=== PATIENT | female | born 1985 | race Caucasian/White ===

== ENCOUNTER 2017-10-27 11:20 | Emergency (ER) | payer OTHER ==
[2017-10-27 11:33] VITALS: BP 130/94
--- NOTE | 2017-10-27 12:01 | UC ---
Skin Complaint HPI - HPI Summary HPI Summary: 32yo otherwise healthy F with complaint of "something bit me." She states that on Sat evening (approx 1.5 days ago) she developed redness/swelling without pain to the dorsal surface of the R index finger. Hx of latex allergy but without any known exposure. No known bite. No fever, redness up the finger or other complaints. Right handed. - History of Current Complaint Chief Complaint: UCSkin Time Seen by Provider: 10/27/17 11:35 Stated Complaint: RED AREA ON FINGER Hx Obtained From: Patient Hx Last Menstrual Period: now Pain Intensity: 0 - Allergy/Home Medications Allergies/Adverse Reactions: Allergies Allergy/AdvReac Type Severity Reaction Status Date / Time latex Allergy Itching Verified 10/27/17 11:33 Review of Systems Constitutional: Negative Skin: Other - discoloration Respiratory: Negative Cardiovascular: Negative Neurovascular: Negative Musculoskeletal: Other: - no pain, warmth. +swelling of finger All Other Systems Reviewed And Are Negative: Yes PMH/Surg Hx/FS Hx/Imm Hx Previously Healthy: Yes Endocrine History: Other - denies diabetes Other Endocrine History: no DM - Surgical History Surgical History: None - Family History Known Family History: Positive: None Family History: R & n/C - Social History Alcohol Use: None Alcohol Amount: none in 3 years Substance Use Type: None Smoking Status (MU): Current Every Day Smoker Type: Cigarettes Amount Used/How Often: 1/2 ppd Length of Time of Smoking/Using Tobacco: 12+ years Have You Smoked in the Last Year: Yes Household Exposure Type: Cigarettes - Immunization History Most Recent Influenza Vaccination: unknown Most Recent Tetanus Shot: 11/08/15 Most Recent Pneumonia Vaccination: never Physical Exam Triage Information Reviewed: Yes Appearance: Well-Appearing, No Pain Distress, Well-Nourished Vital Signs: Initial Vital Signs Temp 36.2 C 10/27/17 11:30 Pulse 86 10/27/17 11:30 Resp 18 10/27/17 11:30 BP 130/94 10/27/17 11:30 Pulse Ox 98 10/27/17 11:30 Vital Signs Reviewed: Yes ENT: Positive: Normal ENT inspection Neck exam: Normal Neck: Positive: Supple Respiratory: Positive: Lungs clear Cardiovascular: Positive: RRR Musculoskeletal Exam: Other - R index finger with area of ecchymosis on the dorsal surface of the prox phalanyx. Swelling with min induration. No warmth or tenderness. No erosions of skin. Neurological Exam: Normal Course/Dx - Course Course Of Treatment: small area of discoloration and induration without evidence for abscess. Oral abx. D/c with f/u. - Differential Diagnoses - Skin Complaint Differential Diagnoses: Other - insect bite vs infectious cellulitis. - Diagnoses Provider Diagnoses: cellulitis Right index finger Discharge - Sign-Out/Discharge Documenting (check all that apply): Discharge - Discharge Plan Condition: Good Disposition: HOME Prescriptions: Clindamycin Cap(NF) [Clindamycin Cap 300 mg Cap(NF)] 300 mg PO TID #21 cap Patient Education Materials: Cellulitis (ED) Referrals: [facility] [Outside] Additional Instructions: Warm compresses. Cover with band-aid. Return with redness up hand, worse, new symptoms or other concerns. - Billing Disposition and Condition Condition: GOOD Disposition: HOME
== END 2017-10-27 12:03 | disposition home or self-care (01) ==
LOC: UCEAST 11:20
DX: L03.011 Cellulitis of right finger (principal); Z91.040 Latex allergy status; F17.210 Nicotine dependence, cigarettes, uncomplicated
CPT/HCPCS: 99212; G0463

== ENCOUNTER 2018-03-20 18:49 | Emergency (ER) | payer OTHER ==
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
[2018-03-20 19:17] VITALS: BP 122/86
[2018-03-20] MEDS ORDERED: HYDROcodone/ACETAMIN 5-325 MG* 1 TAB PO ONE (21:04)
[2018-03-20] MEDS ORDERED: Cyclobenzaprine TAB* 10 MG PO ONE (21:04)
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
== END 2018-03-20 21:25 | disposition home or self-care (01) ==
LOC: UCEAST 18:49
DX: M54.2 Cervicalgia (principal); Z91.040 Latex allergy status; F17.210 Nicotine dependence, cigarettes, uncomplicated
CPT/HCPCS: 72050; 72070; 81003; 84702; 99213; A9270-GY; G0463